=== PATIENT | male | born 1980 | race Two or more races ===

== ENCOUNTER 2017-08-20 17:59 | Emergency (ER) | payer MEDICAID ==
[~2017-08-20] VITALS: Ht 170.2 cm; Wt 63.0 kg
[2017-08-20] MEDS ORDERED: SODIUM CHLORIDE 0.9% 2,000 ML IV ONE (18:36)
[2017-08-20] MEDS ORDERED: KETOROLAC TROMETH 30 MG/ML 1ML VIAL IV ONE (18:45)
[2017-08-20] MEDS ORDERED: HYDROmorphone HCL 2 MG/ML VL IM ONE (18:45)
[2017-08-20] MEDS ORDERED: KETOROLAC TROMETH 60MG/2ML VIAL IM ONE (18:45)
[2017-08-20] MEDS ORDERED: ONDANSETRON HCL 4 MG/2 ML VIAL IV ONE (18:45)
[2017-08-20] MEDS ORDERED: cefTRIAXone 1GM/50ML D5W 50 ML IV ONE (19:00)
[2017-08-20 19:09] LABS: Hematocrit 45.6 % (41.0-53.0); Mean Corpuscular Hgb Conc. 35.1 g/dL (32.0-36.0); Mean Corpuscular Volume 85.7 fL (80.0-100.0); Mean Platelet Volume 9.5 fL (6.9-10.8); Platelet Count (auto) 234 10^3/uL (140-450); Red Cell Distribution Width 12.9 % (11.8-14.3); White Blood Cell 27.5 10^3/uL (4.4-10.8)
[2017-08-20 19:10] LABS: Metamyelocytes % 0; Myelocytes % 0; Promyelocytes % 0; Reactive Lymphocytes 0
[2017-08-20 19:21] LABS: INR 1.03 (0.9-1.15); Partial Thromboplastin Time 28.6 sec (22.64-33.71); Prothrombin Time 11.2 sec (9.37-12.3)
[2017-08-20 19:24] LABS: Albumin 4.2 g/dL (3.4-5.0); BUN/Creatinine Ratio 18.6; Calcium 9.6 mg/dL (8.5-10.1); Potassium 3.3 mmol/L (3.5-5.1)
[2017-08-20 19:27] LABS: Bilirubin, Total 2.5 mg/dL (0.2-1.0); Total Protein 8.8 g/dL (6.4-8.2)
[2017-08-20 19:38] LABS: Platelet Estimate Adequate
[2017-08-20] MEDS ORDERED: PROMETHAZINE HCL 25 MG/ML 1ML IV ONE (20:45)
[2017-08-20] MEDS ORDERED: HYDROmorphone HCL 2 MG/ML VL IV ONE (21:15)
[2017-08-20] MEDS ORDERED: methylPREDNISolone SOD SUCC 125 MG/2 ML VL IV ONE (22:00)
[2017-08-20 22:07] VITALS: BP 118/80
== END 2017-08-20 22:25 | disposition short-term general hospital (02) ==
LOC: ER 18:06
DX: J36 Peritonsillar abscess (principal); F17.210 Nicotine dependence, cigarettes, uncomplicated
CPT/HCPCS: 36415; 70486; 71020; 80053; 85007; 85027; 85610; 85730; 87040; 96361; 96365; 96375; 99285; J0696; J1170; J1885; J2405; J2550; J2930; J7030

== ENCOUNTER 2018-09-24 03:30 | Emergency (ER) | payer MEDICAID ==
[~2018-09-24] VITALS: Ht 167.6 cm; Wt 68.0 kg
[2018-09-24 04:04] VITALS: BP 102/66
== END 2018-09-24 08:11 | disposition left against medical advice (07) ==
LOC: EDBD 03:30 → ER 03:32
DX: R10.9 Unspecified abdominal pain (principal); Z53.21 Procedure and treatment not carried out due to patient leaving prior to being seen by health care provider